=== PATIENT | female | born 1965 | race American Indian/Alaskan Native ===

== ENCOUNTER 2018-12-25 13:57 | Emergency (ER) | payer MEDICAID, SELFPAY ==
[2018-12-25] VITALS (18 sets, daily range): BP systolic 120–131; BP diastolic 54–75; PULSE 62–70; RESP 11–19; TEMP 36.7–36.8; O2SAT 95–98
--- NOTE | 2018-12-25 14:42 | W.ED.GENAD ---
Discharge Plan Disposition Patient Disposition: HOME Discharge Details Chief Complaint: Dizzy/Sync Clinical Impression: Lightheadedness Primary Care Provider: Paola Kaye ED Provider: Ildefonso Colbert Discharge Instructions Instructions: Lightheadedness (ED) Additional Instructions: Please follow-up with your primary care physician and user acceptance tester. Call on Thursday. You should have a stress test scheduled as soon as possible. Rest over the next few days. Return to the ER for any worsening or new concerning symptoms. Referrals: Paola Kaye [Primary Care Provider] - Discharge Data Discharge Date/Time-TO BE ENTERED AT DEPARTURE: 12/25/18 18:45 Medical Decision Making 14:45 --53-year-old female with history of intermittent chronic lightheadedness and palpitations, here after episode of severe lightheadedness with palpitations and shortness of breath, subsequently feeling generally ill with intermittent pain in her cheeks and jaws bilaterally. Consider ACS. Plan to obtain screening EKG and check troponin. Patient is low risk by Wells criteria. Plan to check d-dimer. Consider thyroid dysfunction. Will check TSH. Respiratory therapy consulted to determine if holter captured any abnormal reading. I reviewed and interpreted continuous ECG monitoring in the room and no arrhythmia. ECG was reviewed and interpreted by me: Sinus rhythm 64 bpm, normal axis, T wave inversions are noted V1 to V3. Nondiagnostic. 14:58 -- I spoke with Holter monitor rep: Patient did not have any abnormal rhythm that was noted around noon today. She did have a T wave inversion noted at 3 AM and 6 AM it does not seem to be present at this time. Around 247 today the patient did present alarm when she was experiencing symptoms and was noted to have a PAC and a 4 beat run of likely SVT. 18:20 -- Labs reviewed and initial troponin negative. Repeat troponin negative and unchanged at 3 hours. Repeat ECG reviewed and interpreted by me: Sinus rhythm 64 bpm, normal axis, T wave inversions persist in V1 to V3 unchanged from prior. Plan at this time is to discharge the patient to follow-up with her primary care physician and user acceptance tester. Patient has a follow-up appointment with cardiology. Usual and customary discharge instructions were provided and patient verbalized understanding of need to pursue additional diagnostic testing including timely outpatient stress testing. She will contact her PCP on Thursday. I encouraged her to return should she have any worsening or new concerning symptoms. HPI General Mode of arrival: ambulatory. Date/Time Provider Initiated Documentation: 12/25/18 14:25. Limitations to Documentation: no limitations. Information obtained by: patient. HPI Narrative: 53-year-old female with history of asthma, fibromyalgia, PFO, here with chief complaint of lightheadedness. Patient notes that around noon today she experienced an episode of dizziness described as lightheaded. She had associated shortness of breath. The symptoms occurred at rest. She no associated shortness of breath. She did note some palpitations during the episode. Patient went inside and rested and then felt hung over. Since the episode she continues to feel generally unwell and has intermittent discomfort in her bilateral jaws. Patient notes that she has had intermittent episodes of lightheadedness times years. They have become more frequent and more severe recently. She recently had an echocardiogram that revealed PFO. She currently has a Holter monitor on. Unfortunately she did not record the episode when she was having it today. She did call the monitoring company and they note that there was nothing abnormal noted. Related Data Allergies Allergy/AdvReac Type Severity Reaction Status Date / Time prednisone Allergy Severe Wheezing Unverified 12/25/18 14:02 metronidazole [From Flagyl] Allergy Intermediate Hives Unverified 12/25/18 14:02 General Stated Complaint: Dizzy/Sync MYRNA: 3 Review of Systems Review of Systems All systems reviewed & are unremarkable except as noted in HPI and below Constitutional Denies fever(s) ENT Reports dizziness Cardiovascular Denies chest pain, Denies syncope, Reports palpitations and Reports dyspnea (now resolved) Respiratory Reports dyspnea (now resolved) Neurologic Reports dizziness and Denies syncope Endocrine Reports palpitations PFS Medical History Asthma (Chronic) Fibromyalgia (Chronic) PFO (patent foramen ovale) (Chronic) Social History Smoking and Tabacco status: Never Exam Const General: cooperative and no acute distress HENMT Head: normocephalic and atraumatic Mouth: moist mucous membranes Eyes Conjunctivae: normal conjunctivae Sclera: normal sclerae EOM: EOM intact bilaterally Neck Neck: trachea midline and supple Resp Auscultation: clear to auscultation bilaterally, no rales, no rhonchi and no wheezes Cardio Jugular venous pressure: no JVD Rate: regular rate and not tachycardic Rhythm: regular rhythm GI Palpation: soft, not firm, no guarding, no masses, not rigid and nontender Skin General skin exam: no rashes or lesions noted Neuro General: alert, awake, oriented x3 and tone normal Cranial Nerves: CN's II-XI intact bilaterally Cognition: normal cognition Speech: speech normal Motor: muscle tone normal throughout Sensory Exam: no sensory deficits noted Extrem General: no calf tenderness bilaterally and no edema Psych Appearance: grossly normal Mental Status: mental status grossly normal Speech and Movement: speech and movement normal Course Vital Signs Temperature 36.8 C 12/25/18 14:02 Pulse 70 12/25/18 14:02 Respiratory Rate 16 12/25/18 14:02 Blood Pressure 131/75 12/25/18 14:02 Pulse Oximetry 96 12/25/18 14:02 Temperature 36.8 C 12/25/18 14:02 Temperature Source Temporal Artery Scan 12/25/18 14:02 Pulse 70 12/25/18 14:02 Respiratory Rate 16 12/25/18 14:06 Respiratory Effort 12/25/18 14:06 Respiratory Depth Normal 12/25/18 14:06 Respiratory Pattern Normal 12/25/18 14:06 Blood Pressure 131/75 12/25/18 14:02 Blood Pressure Position Sitting 12/25/18 14:02 Pulse Oximetry 96 12/25/18 14:02 Oxygen Delivery Method Room Air 12/25/18 14:02 Oxygen Flow Rate 0 12/25/18 14:02
--- NOTE | 2018-12-25 14:48 | ED.GENADUL_ITS ---
Discharge Plan Disposition Patient Disposition: HOME Discharge Details Chief Complaint: Dizzy/Sync Clinical Impression: Lightheadedness Primary Care Provider: Paola Kaye ED Provider: Ildefonso Colbert Discharge Instructions Instructions: Lightheadedness (ED) Additional Instructions: Please follow-up with your primary care physician and bartender manager. Call on Thursday. You should have a stress test scheduled as soon as possible. Rest over the next few days. Return to the ER for any worsening or new concerning symptoms. Referrals: Paola Kaye [Primary Care Provider] - Discharge Data Discharge Date/Time-TO BE ENTERED AT DEPARTURE: 12/25/18 18:45 Medical Decision Making 14:45 --53-year-old female with history of intermittent chronic lightheadedness and palpitations, here after episode of severe lightheadedness with palpitations and shortness of breath, subsequently feeling generally ill with intermittent pain in her cheeks and jaws bilaterally. Consider ACS. Plan to obtain screening EKG and check troponin. Patient is low risk by Wells criteria. Plan to check d-dimer. Consider thyroid dysfunction. Will check TSH. Respiratory therapy consulted to determine if holter captured any abnormal reading. I reviewed and interpreted continuous ECG monitoring in the room and no arrhythmia. ECG was reviewed and interpreted by me: Sinus rhythm 64 bpm, normal axis, T wave inversions are noted V1 to V3. Nondiagnostic. 14:58 -- I spoke with Holter monitor rep: Patient did not have any abnormal rhythm that was noted around noon today. She did have a T wave inversion noted at 3 AM and 6 AM it does not seem to be present at this time. Around 247 today the patient did present alarm when she was experiencing symptoms and was noted to have a PAC and a 4 beat run of likely SVT. 18:20 -- Labs reviewed and initial troponin negative. Repeat troponin negative and unchanged at 3 hours. Repeat ECG reviewed and interpreted by me: Sinus rhythm 64 bpm, normal axis, T wave inversions persist in V1 to V3 unchanged from prior. Plan at this time is to discharge the patient to follow-up with her primary care physician and bartender manager. Patient has a follow-up appointment with cardiology. Usual and customary discharge instructions were provided and patient verbalized understanding of need to pursue additional diagnostic testing including timely outpatient stress testing. She will contact her PCP on Thursday. I encouraged her to return should she have any worsening or new concerning symptoms. HPI General Mode of arrival: ambulatory . Date/Time Provider Initiated Documentation: 12/25/18 14:25 . Limitations to Documentation: no limitations . Information obtained by: patient . HPI Narrative: 53-year-old female with history of asthma, fibromyalgia, PFO, here with chief complaint of lightheadedness. Patient notes that around noon today she experienced an episode of dizziness described as lightheaded. She had associated shortness of breath. The symptoms occurred at rest. She no associated shortness of breath. She did note some palpitations during the episode. Patient went inside and rested and then felt hung over. Since the episode she continues to feel generally unwell and has intermittent discomfort in her bilateral jaws. Patient notes that she has had intermittent episodes of lightheadedness times years. They have become more frequent and more severe recently. She recently had an echocardiogram that revealed PFO. She currently has a Holter monitor on. Unfortunately she did not record the episode when she was having it today. She did call the monitoring company and they note that there was nothing abnormal noted. Related Data Allergies Allergy/AdvReac Type Severity Reaction Status Date / Time prednisone Allergy Severe Wheezing Unverified 12/25/18 14:02 metronidazole [From Flagyl] Allergy Intermediate Hives Unverified 12/25/18 14:02 General Stated Complaint: Dizzy/Sync MYRNA: 3 Review of Systems Review of Systems All systems reviewed & are unremarkable except as noted in HPI and below Constitutional Denies fever(s) ENT Reports dizziness Cardiovascular Denies chest pain, Denies syncope, Reports palpitations and Reports dyspnea (now resolved) Respiratory Reports dyspnea (now resolved) Neurologic Reports dizziness and Denies syncope Endocrine Reports palpitations PFS Medical History Asthma (Chronic) Fibromyalgia (Chronic) PFO (patent foramen ovale) (Chronic) Social History Smoking and Tabacco status: Never Exam Const General: cooperative and no acute distress HENMT Head: normocephalic and atraumatic Mouth: moist mucous membranes Eyes Conjunctivae: normal conjunctivae Sclera: normal sclerae EOM: EOM intact bilaterally Neck Neck: trachea midline and supple Resp Auscultation: clear to auscultation bilaterally, no rales, no rhonchi and no wheezes Cardio Jugular venous pressure: no JVD Rate: regular rate and not tachycardic Rhythm: regular rhythm GI Palpation: soft, not firm, no guarding, no masses, not rigid and nontender Skin General skin exam: no rashes or lesions noted Neuro General: alert, awake, oriented x3 and tone normal Cranial Nerves: CN's II-XI intact bilaterally Cognition: normal cognition Speech: speech normal Motor: muscle tone normal throughout Sensory Exam: no sensory deficits noted Extrem General: no calf tenderness bilaterally and no edema Psych Appearance: grossly normal Mental Status: mental status grossly normal Speech and Movement: speech and movement normal Course Vital Signs Temperature 36.8 C 12/25/18 14:02 Pulse 70 12/25/18 14:02 Respiratory Rate 16 12/25/18 14:02 Blood Pressure 131/75 12/25/18 14:02 Pulse Oximetry 96 12/25/18 14:02 Temperature 36.8 C 12/25/18 14:02 Temperature Source Temporal Artery Scan 12/25/18 14:02 Pulse 70 12/25/18 14:02 Respiratory Rate 16 12/25/18 14:06 Respiratory Effort 12/25/18 14:06 Respiratory Depth Normal 12/25/18 14:06 Respiratory Pattern Normal 12/25/18 14:06 Blood Pressure 131/75 12/25/18 14:02 Blood Pressure Position Sitting 12/25/18 14:02 Pulse Oximetry 96 12/25/18 14:02 Oxygen Delivery Method Room Air 12/25/18 14:02 Oxygen Flow Rate 0 12/25/18 14:02
[2018-12-25 15:05] LABS: Abs Immature Grans 0.01 k/cumm (0.0-0.09); Absolute Basophil Count 0.02 k/cumm (0.0-0.2); Absolute Eosinophil Count 0.05 k/cumm (0.0-0.7); Absolute Lymphocyte Count 1.65 k/cumm (1.2-3.4); Absolute Monocyte Count 0.58 k/cumm (0.11-0.7); Absolute Neutrophil Count 6.57 k/cumm (1.2-6.7); Basophils % 0.2; Eosinophils % 0.6; HCT 40.1 % (36.0-46.0); HGB 13.4 g/dL (12.0-15.5); Immature Grans % 0.1; Lymphocytes % 18.6; Mean Corp. HGB Concentration 33.4 g/dL (32.0-36.0); Mean Corpuscular Hemoglobin 27.4 pg (27.0-33.0); Mean Platelet Volume 9.6 fL (8.0-11.0); Monocytes % 6.5; Platelet Count 281 x1000/uL (130-400); RBC 4.89 m/cumm (4.00-5.20); RBC Distribution Width 14.1 % (11.7-14.6); White Blood Cell Count 8.88 k/cumm (4.4-10.8)
[2018-12-25 15:19] LABS: ALT 13 U/L (12-78); AST 10 U/L (15-37); Albumin 3.8 g/dL (3.4-5.0); Alkaline Phosphatase 93 U/L (46-116); Anion Gap 7.8 mmol/L (3-11); BUN 13 mg/dL (7-18); Bilirubin, Total 0.6 mg/dL (0.2-1.0); CO2 30.2 mmol/L (21.0-32.0); CREATININE 0.73 mg/dL (0.55-1.02); Chloride 103 mmol/L (98-107); Glucose 88 mg/dL (70-100); Potassium 4.1 mmol/L (3.5-5.1); Sodium 141 mmol/L (136-145); Total Protein 8.2 g/dL (6.4-8.2)
[2018-12-25 15:27] LABS: Magnesium 2.1 mg/dL (1.8-2.4); TSH (W/Ref FT4) 1.55 uIU/mL (0.358-3.74); Troponin I < 0.02 ng/mL (0.00-0.06)
[2018-12-25 15:35] LABS: D-Dimer 226 ng/mlFEU (<500)
[2018-12-25 17:40] LABS: Troponin I < 0.02 ng/mL (0.00-0.06)
--- NOTE | 2018-12-28 08:58 | PDOC.ERCMPRO ---
Care Management Progress Note 12/28-This CM received phone call from Diaan stating that Paola Kaye was listed as her PCP. Diana states that Dr. Lyndsey Lambert at [facility] is her PCP. Diana states she told the person that registered her of the change. Diana is concerned and states that Dr. Marcelle Colbert told her she needed a stress test in a week. This CM called [facility] and spoke with Oumou. Oumou confirmed that Diana was a patient of [facility].Oumou requested that this CM fax provider note and other reports to [phone] for which was done. This CM called access and spoke with Tanya. Tanya updated the chart to reflect Dr Lambert as PCP. This CM called Diana back at [phone] to let her know that Oumou from [place] stated that the office would call with an appt for stress test. The telephone number is not the same as in the chart. This CM asked Diana is this was a new number and Diana stated that this is her cell number the only number she has. Diana also gave complete address of [address] [place] [address]. Called [facility] again and spoke with Wilda who updated the phone and address.
--- NOTE | 2018-12-28 09:25 | CMPROGNOTE_ITS ---
Care Management Progress Note 12/28-This CM received phone call from Diana stating that Paola Kaye was listed as her PCP. Diana states that Dr. Lyndsey Lambert at [facility] is her PCP. Diana states she told the person that registered her of the change. Diana is concerned and states that Dr. Marcelle Colbert told her she needed a stress test in a week. This CM called [facility] and spoke with Oumou. Oumou confirmed that Diana was a patient of [facility].Oumou requested that this CM fax provider note and other reports to [phone] for which was done. This CM called access and spoke with Tanya. Tanya updated the chart to reflect Dr Lambert as PCP. This CM called Diana back at [phone] to let her know that Oumou from [place] stated that the office would call with an appt for stress test. The telephone number is not the same as in the chart. This CM asked Diana is this was a new number and Diana stated that this is her cell number the only number she has. Diana also gave complete address of [address] [place] [address]. Called [facility] again and spoke with Wilda who updated the phone and address.
== END 2018-12-25 18:45 | disposition home or self-care (01) ==
PROVIDERS: Emergency Provider Student in an Organized Health Care Education/Training Program; PCP Family Medicine
DX: R42 Dizziness and giddiness (principal); R00.2 Palpitations; R68.84 Jaw pain
CPT/HCPCS: 36415; 80053; 93005; 99284; 83735; 84443; 84484; 85025; 85379; 93010